=== PATIENT | female | born 1935 | race Caucasian/White ===

== ENCOUNTER 2024-04-27 11:38 | Emergency (ER) | payer MEDICARE, OTHER ==
[~2024-04-27] VITALS: Ht 162.6 cm; Wt 86.2 kg
[2024-04-27] MEDS ORDERED: KETO10TA2 PO (14:47)
[2024-04-27 15:10] VITALS: BP 138/68; TEMP 98.5; O2SAT 94
== END 2024-04-27 15:11 | disposition home or self-care (01) ==
LOC: ER 12:03
DX: S30.0XXA Contusion of lower back and pelvis, initial encounter (principal); E11.9 Type 2 diabetes mellitus without complications; I10 Essential (primary) hypertension; M25.552 Pain in left hip; M54.50 Low back pain, unspecified; R07.89 Other chest pain; Z60.2 Problems related to living alone; W01.0XXA Fall on same level from slipping, tripping and stumbling without subsequent striking against object, initial encounter; Y93.89 Activity, other specified; Y92.89 Other specified places as the place of occurrence of the external cause; Y99.8 Other external cause status
CPT/HCPCS: 71100-TC; 73502